=== PATIENT | male | born 1990 | race African-American/Black ===

== ENCOUNTER 2021-04-12 16:29 | Emergency (ER) | payer SELFPAY ==
[~2021-04-12] VITALS: Ht 190.5 cm; Wt 99.8 kg
[2021-04-12] MEDS ORDERED: IPRATROPIUM/ALBUTEROL SULFATE 3 ML SOLUTION IH STA (16:35)
[2021-04-12] MEDS ORDERED: ALBU8.5H8 IH (18:29)
[2021-04-12] MEDS ORDERED: PRED20TA3 PO (18:29)
[2021-04-12] MEDS ORDERED: ALBU1.252 IH (18:29)
[2021-04-12 18:34] VITALS: BP 136/50
[2021-04-12] MEDS ORDERED: IPRATROPIUM/ALBUTEROL SULFATE 3 ML SOLUTION IH ONE (18:34)
== END 2021-04-12 19:24 | disposition home or self-care (01) ==
LOC: EDH 16:29
DX: J45.909 Unspecified asthma, uncomplicated (principal); Z76.0 Encounter for issue of repeat prescription
CPT/HCPCS: 71045; 94640